=== PATIENT | female | born 1970 | race Caucasian/White ===

== ENCOUNTER 2016-11-14 07:41 | Emergency (ER) | payer BC ==
[2016-11-14 09:41] LABS: HEMOGLOBIN 11.4 gm/dl (12.3-15.3); RED BLOOD COUNT 3.86 M/UL (4.00-5.10); WHITE BLOOD COUNT 6.4 K/UL (4.5-11.0)
[2016-11-14 09:59] LABS: BUN/CREATININE RATIO 16 (0-10)
== END 2016-11-14 16:45 | disposition home or self-care (01) ==
LOC: ER1 07:41
PROVIDERS: Emergency Medicine
DX: K76.9 Liver disease, unspecified (principal); Z90.49 Acquired absence of other specified parts of digestive tract
CPT/HCPCS: 36415; 80053; 81001; 82150; 83690; 84703; 85025; 87086; 96361; 96374; 96375; 99283; J2270; J2405; J7050; Q9962